=== PATIENT | female | born 1995 | race Caucasian/White ===

== ENCOUNTER 2017-01-11 17:32 | Emergency (ER) | payer BC ==
--- NOTE | 2017-01-11 18:10 | EDPHY ---
H & P Smoking Status: Never smoked Time Seen by Provider: 01/11/17 17:55 HPI/ROS: CHIEF COMPLAINT: Increasing depression and anxiety HISTORY OF PRESENT ILLNESS: This patient is a history of depression and anxiety and was working as recently as last August but not since. She was in school intermittently at the [employer] but dropped out this semester because of worsening depression and anxiety. She was started on Prozac 3 weeks ago and today presents for worsening depression and anxiety with intermittent suicidal thoughts including earlier today but not currently. However she is so disabled that she spent the entire day in bed and only left her house and her bedroom to drive here to the emergency department. Her prescribing physician is Dr. Ruiz. Symptoms today are severe. REVIEW OF SYSTEMS: Eye: no change in vision ENT: no sore throat, some left ear pain Cardiac: no chest pain or syncope Pulmonary: no cough or SOB Abdomen: no vomiting, diarrhea, abdominal pain. Intermittent vaginal discharge , mild Musculoskeletal: no back pain Skin: no rash Neuro: no headache Constitutional: no fever : no urinary symptoms A comprehensive 10 point review of systems is otherwise negative aside from elements mentioned in the history of present illness. PAST MEDICAL HISTORY: Includes depression, strep throat, recurrent left otitis media. Irritable bowel and lactose intolerance. Social history: No alcohol or drugs today General Appearance: Alert and conversant, cooperative. Eyes: No scleral icterus. ENT, Mouth: Normal mucous membranes. Normal tympanic membranes and external canals bilaterally. Respiratory: Normal respiratory effort, breath sounds equal, lungs are clear to auscultation. Cardiovascular: Regular rate and rhythm. Gastrointestinal: Abdomen is soft and non tender. Neurological: Alert and oriented x3. Normally conversant. Face symmetric, normal movement and sensation in all extremities. Skin: Warm and dry, no rashes. Musculoskeletal: No peripheral edema and no joint swelling. Psychiatric: Tearful, depressed affect, denies current suicidal ideation but admits to suicidal ideation earlier today. Emergency Department course/MDM: Patient presents with severe depression and anxiety such that she is not working , not in school, and not even leaving her house today. Plan for urine and screening labs and psychiatric evaluation. 2000: Signed out to Dr. Hendricks at this time with psychiatric evaluation pending. (Salo Winter) Constitutional: Initial Vital Signs Temperature (C) 36.6 C 01/11/17 17:36 Heart Rate 75 01/11/17 17:36 Respiratory Rate 14 01/11/17 17:36 Blood Pressure 108/72 01/11/17 17:36 O2 Sat (%) 95 01/11/17 17:36 O2 Delivery Mode Room Air Allergies/Adverse Reactions: lactose Allergy (Intermediate, Verified 03/14/16 20:42) Vomiting Home Medications: Medication Instructions Recorded Ambien 5MG (*) 01/11/17 Prozac 10 MG (*) 01/11/17 Medical Decision Making Differential Diagnosis: 701: Patient was seen and evaluated by mental health. They may allow this patient to go home as she has good follow-up in place and psychiatric care. However they would like to re-evaluate her this morning and run it by Dr. Infante for safety planning and discharge planning. Patient signed over to Dr. De Anda at 7am Shift-change. (Chevy Arroyo) Differential diagnosis considered for depression including functional and major depression, situational depression, medication side effect, drugs and alcohol abuse. (Salo Winter) - Data Points Laboratory Results: Laboratory Results 01/11/17 18:10 01/11/17 18:10 Medications Given: Discontinued Medications Acetaminophen (Tylenol) 1,000 mg PO EDNOW ONE Stop: 01/11/17 19:33 Last Admin: 01/11/17 19:42 Dose: 1,000 mg Ondansetron HCl (Zofran Odt) 4 mg PO EDNOW ONE Stop: 01/11/17 21:01 Last Admin: 01/11/17 21:06 Dose: 4 mg Departure - Departure Disposition: Home, Routine, Self-Care Clinical Impression: Severe major depression, Anxiety Condition: Good Instructions: Depression (ED), Suicide Prevention for Adults (ED) Referrals: Nallely Ruiz MD [Medical Doctor] - As per Instructions
[2017-01-11 18:23] LABS: % IMMATURE GRANULYOCYTES 0.3 % (0.0-1.1); ABSOLUTE IMMATURE GRANULOCYTES 0.03 10^3/uL (0.00-0.10); ADD DIFF? NO; ADD MORPH? NO; ADD SCAN? NO; ATYPICAL LYMPHOCYTE FLAG 0 (0-99); FRAGMENT RBC FLAG 0 (0-99); HEMATOCRIT 45.8 % (38.0-47.0); HEMOGLOBIN 15.8 g/dL (12.6-16.3); LEFT SHIFT FLG 0 (0-99); LIPEMIA HEMOLYSIS FLAG 90 (0-99); MEAN CELL HEMOGLOBIN 28.8 pg (27.9-34.1); MEAN CELL HEMOGLOBIN CONCENTR. 34.5 g/dL (32.4-36.7); MEAN CELL VOLUME 83.6 fL (81.5-99.8); MEAN PLATELET VOLUME 10.9 fL (8.7-11.7); PLATELET CLUMPS FLAG 0 (0-99); PLATELET COUNT 236 10^3/uL (150-400); RED BLOOD CELL COUNT 5.48 10^6/uL (4.18-5.33); RED CELL DISTRIBUTION WIDTH 11.9 % (11.5-15.2)
[2017-01-11 18:36] LABS: ANION GAP 11 mEq/L (8-16); CALCIUM 9.8 mg/dL (8.5-10.4); CARBON DIOXIDE 25 mEq/l (22-31); CHLORIDE 105 mEq/L (97-110); CREATININE 0.7 mg/dL (0.6-1.0); ETHANOL SERUM < 10 mg/dL (0-10); GLOMERULAR FILTRATION RATE > 60; GLUCOSE 94 mg/dL (70-100); POTASSIUM 3.9 mEq/L (3.5-5.2); SALICYLATE < 1.0 mg/dL (2.0-20.0); SODIUM 141 mEq/L (134-144)
[2017-01-11] MEDS ORDERED: ACETAMINOPHEN 500 MG TAB PO ONE (19:32)
[2017-01-11 20:34] VITALS: RESP 12
[2017-01-11] MEDS ORDERED: ONDANSETRON DISINTEGRATING 4 MG TAB PO ONE (21:00)
[2017-01-12 07:27] VITALS: BP 100/65; PULSE 91; TEMP 98.8; O2SAT 94
== END 2017-01-12 07:34 | disposition home or self-care (01) ==
DX: F32.9 Major depressive disorder, single episode, unspecified (principal); F41.9 Anxiety disorder, unspecified
CPT/HCPCS: 80305; G0480